=== PATIENT | female | born 1955 | race Caucasian/White ===

== ENCOUNTER 2016-10-06 06:37 | Inpatient (IN) | payer BC ==
--- NOTE | 2016-09-30 11:20 | HP ---
HISTORY AND PHYSICAL: DATE OF ADMISSION/SURGERY: 10/06/16 DATE OF OFFICE VISIT: 09/30/16 SURGEON: Ellie Dailey MD. PROCEDURE: Right total hip arthroplasty. CHIEF COMPLAINT: Right hip pain. HISTORY OF PRESENT ILLNESS: Ms. Durham is a 61-year-old female with complaints of right hip pain secondary to advanced osteoarthritis. She has failed conservative management and has elected to pro ceed with a right total hip arthroplasty, which is scheduled for 10/06/[address] Dailey. PAST MEDICAL HISTORY: Osteoarthritis. PAST SURGICAL HISTORY: Left hip arthroplasty revision, left shoulder arthroscopy, wisdom tooth extr action, and bladder sling. CURRENT MEDICATIONS: 1. Multivitamin. 2. Vitamin E. ALLERGIES: LATEX. FAMILY HISTORY: Leukemia. SOCIAL HISTORY: She is a 61-year-old female. She lives alone. She does not smoke or use drugs. S he uses alcohol occasionally. REVIEW OF SYSTEMS: A complete 14-point review of systems was reviewed with the patient and was all negative or noncontributory. PHYSICAL EXAMINATION GENERAL: She is well developed, well nourished, in no acute distress. VITAL SIGNS: She stands 5 feet tall, weighs 145 pounds. Her blood pressure is 121/76, her heart ra te is 73. HEENT: Normocephalic, atraumatic. NECK: Supple. No palpable lymph nodes. PULMONARY: Lungs are clear to auscultation bilaterally. CARDIO: Regular rate and rhythm. ABDOMEN: Soft, nontender, and nondistended. MUSCULOSKELETAL: Right lower extremity: The skin is intact. There are no open wounds or abrasions . She has diminished range of motion of her right hip. She walks with antalgic-type gait. Her low er extremity muscle group strengths are intact at 5/5. She has 2+ dorsalis pedis pulses with intact sensation. NEUROLOGIC: She is alert and oriented x3. Cranial nerves II through XII are intact. ASSESSMENT AND PLAN: Ms. Durham is a 61-year-old female with complaints of right hip pain second lavonne to advanced osteoarthritis. She failed conservative management and has elected to proceed with a right total hip arthroplasty with surgery scheduled for 10/06/[address] Dailey discus sed the risks and benefits of the surgery at today's visit and all of her questions were answered. Coumadin was sent to her pharmacy for postoperative DVT prophylaxis. She has prescription for oxyco done and Colace for pain control after the surgery. She will see Dr. Dailey back 2 weeks after the s urgery. LESVIA CENTENO [id number]/[facility] #: [id number]
[~2016-10-06 06:37] MED LIST: Buffered Lidocaine 0.9% SYRIN* 5 ML/SYR SYRINGE INTRADERM ONE; Dexamethasone IV* 4 MG/ML 1 ML (4 MG) IV SLOW PU ONE; Famotidine IV* 10 MG/ML 2 ML (20 mg) IV ONE; Scopolamine 1.5 mg* PATCH TRANSDERM ONE
[2016-10-06] MEDS ORDERED: Buffered Lidocaine 0.9% SYRIN* 5 ML/SYR SYRINGE ONE (06:51)
[2016-10-06] MEDS ORDERED: Famotidine IV* 10 MG/ML 2 ML (20 mg) ONE (07:11)
[2016-10-06] MEDS ORDERED: Scopolamine 1.5 mg* PATCH ONE (07:11)
[2016-10-06] MEDS ORDERED: Dexamethasone IV* 4 MG/ML 1 ML (4 MG) ONE (07:11)
[2016-10-06] MEDS ORDERED: ceFAZolin 2 GM PREMIX(*) 2 GM/50 ML BAG IVPB ONE (07:15)
[2016-10-06] MEDS ORDERED: fentaNYL* 50 MCG/ML 2 ML VIAL (100 MCG VIAL) ONE (07:53)
[2016-10-06] MEDS ORDERED: Midazolam* 1 MG/ML 5 ML VIAL (5 MG) ONE (07:53)
[2016-10-06] MEDS ORDERED: Morphine PF AMP (0.5MG/ML)* 5 MG/10 ML AMP ONE (07:53)
[2016-10-06] MEDS ORDERED: Bupivacaine 0.5% SDV PF* 30 ML VIAL ONE (07:53)
[2016-10-06] MEDS ORDERED: Propofol* 10 MG/ML 20 ML BTL IV PUSH ONE ×2 (08:29→09:46)
[2016-10-06] MEDS ORDERED: Lidocaine 2% PF * 5 ML VIAL ONE (08:29)
[2016-10-06] MEDS ORDERED: Phenylephrine IV* 40 MCG/ML 10 ML SYRINGE ONE (09:28)
[2016-10-06] MEDS ORDERED: Phenylephrine INJ* 10 MG/ML 1 ML VIAL (10 MG) ONE (09:38)
[2016-10-06] MEDS ORDERED: EPHEDrine (Pressors)* 50 MG/ML VIAL ONE (09:42)
[2016-10-06] MEDS ORDERED: oxyCODONE TAB* 5 MG TAB PO PRN ×2 (10:16→10:18)
[2016-10-06] MEDS ORDERED: PROCHLORPERAZINE INJ 5 MG/ML 2 ML VIAL IV PRN (10:16)
[2016-10-06] MEDS ORDERED: Nalbuphine* 20 MG/ML 1 ML VIAL IV PRN ×2 (10:16→10:18)
[2016-10-06] MEDS ORDERED: Acetaminophen IV 1GM/100ML * 100 ML IVPB ONE (10:16)
[2016-10-06] MEDS ORDERED: fentaNYL* 50 MCG/ML 2 ML VIAL (100 MCG VIAL) IV PRN (10:16)
[2016-10-06] MEDS ORDERED: Naloxone* 0.4 MG/ML 1 ML VIAL IV PRN (10:18)
[2016-10-06] MEDS ORDERED: Ondansetron INJ* 2 MG/ML VIAL IV PRN ×2 (10:18→11:36)
[2016-10-06] MEDS ORDERED: Ondansetron INJ* 2 MG/ML VIAL ONE (10:31)
[2016-10-06] MEDS ORDERED: Acetaminophen TAB* 325 MG PO SCH (11:00)
[2016-10-06] MEDS ORDERED: Midazolam* 1 MG/ML 2 ML VIAL (2 MG) ONE (11:00)
--- NOTE | 2016-10-06 11:07 | RAD ---
INDICATION: Status post right total hip arthroplasty TECHNIQUE: An AP view of the pelvis was obtained. FINDINGS: The left hip prosthesis appears to be anatomically aligned. The acetabular component of the right hip prosthesis as well as the femoral shaft component are currently in position. It did not appear that the right femoral head prostheses has been implanted yet. IMPRESSION: Intraoperative findings as described above.
[2016-10-06] MEDS ORDERED: oxyCODONE/Acetamin 5/325 MG* TAB PO PRN (11:31)
[2016-10-06] MEDS ORDERED: Ondansetron TAB* 4 MG PO PRN (11:36)
[2016-10-06] MEDS ORDERED: diPHENhydraMINE IV* 50 MG/ML 1 ml VIAL (BENADRYL) IV PRN (11:36)
[2016-10-06] MEDS ORDERED: Polyethylene Glycol 3350* 17 GM PACKET PO PRN (11:36)
[2016-10-06] MEDS ORDERED: diPHENhydraMINE PO* 25 MG PO PRN (11:36)
[2016-10-06] MEDS ORDERED: Bisacodyl SUPP* 10 MG SUPP PR PRN (11:36)
[2016-10-06] MEDS ORDERED: Morphine INJ* 10 MG/ML 1 ML SYRINGE IV PRN (11:36)
[2016-10-06] MEDS ORDERED: Acetaminophen IV 1GM/100ML * 100 ML ONE (12:04)
--- NOTE | 2016-10-06 14:04 | RAD ---
Indication: Post RIGHT total hip replacement. Comparison: August 26, 2016 Technique: AP pelvis and proximal femurs and AP and crosstable lateral views RIGHT hip. Report: Newly placed noncemented RIGHT total hip prosthesis in place with cerclage wires at the intratrochanteric and subtrochanteric regions. Normal articular alignment. No evidence for periprosthetic fracture. Surrounding soft tissue edema and subcutaneous emphysema. Unremarkable appearance of the LEFT total hip prosthesis on the AP pelvis view. IMPRESSION: Unremarkable immediate postop appearance of the RIGHT total hip prosthesis.
[2016-10-06] MEDS: ceFAZolin VIAL(*) 1 GM in NS 0.9% 50 ML* 50 ML IVPB SCH (16:35)
[2016-10-06] MEDS ORDERED: Warfarin TAB(*) 6 MG PO ONE (17:00)
[2016-10-06] MEDS: Acetaminophen TAB* 325 MG PO SCH (20:21)
[2016-10-06] MEDS: Magnesium Hydroxide LIQ* 30 ML UDC PO SCH (20:21)
[2016-10-06] MEDS: Docusate CAP* 100 MG PO SCH (20:21)
[2016-10-07] MEDS: ceFAZolin VIAL(*) 1 GM in NS 0.9% 50 ML* 50 ML IVPB SCH ×2 (00:34→07:46)
[2016-10-07] MEDS: Acetaminophen TAB* 325 MG PO SCH ×3 (03:55→20:21)
[2016-10-07 06:32] LABS: Hematocrit 27 % (35-47); Hemoglobin 8.8 g/dl (12.0-16.0); Mean Platelet Volume 9 um3 (7.4-10.4)
[2016-10-07 06:47] LABS: BUN/Creatinine Ratio 17.2 (8-20); Calcium 8.2 mg/dL (8.6-10.3); EGFR African American 136.8 (>60); EGFR Non-African American 106.4 (>60); Potassium 4.3 mmol/L (3.5-5.0)
[2016-10-07] MEDS: oxyCODONE TAB* 5 MG TAB PO PRN ×4 (07:46→20:20)
[2016-10-07] MEDS: Ascorbic Acid TAB* 500 MG PO SCH (07:46)
[2016-10-07] MEDS: Prenatal Vitamin TAB PO SCH (07:46)
[2016-10-07] MEDS: Docusate CAP* 100 MG PO SCH ×2 (07:46→20:20)
[2016-10-07] MEDS: Magnesium Hydroxide LIQ* 30 ML UDC PO SCH ×2 (09:58→20:20)
--- NOTE | 2016-10-07 11:35 | PN ---
Progress Note - Progress Note Date of Service: 10/07/16 SOAP: Subjective: 61 y/o female s/p R SOCRATES 10/[address] Dailey. 50% WB d/t intraop fx. Patient reports feeling well, pain controlled with pain medications at rest, vss afebrile overnight, no questions w regards to surgery Objective: General- Well appearing, NAD AO resting comfrotably MSK- SUrgical dressing intact, no drainage noted. neg homans b/l, + DF/PF, light touch sensation intact Vital Signs Temp 98.1 F 10/07/16 08:42 Pulse 69 10/07/16 08:42 Resp 16 10/07/16 09:46 BP 104/62 10/07/16 07:45 Pulse Ox 94 10/07/16 08:42 Intake & Output 10/06/16 10/07/16 10/07/16 18:59 06:59 18:59 Intake Total 3700 2248 420 Output Total 1950 3500 Balance 1750 -1252 420 Intake: IV Fluids 3250 1808 LR 1808 NS 50ML, Cefazolin 2G 50 lr 3200 Oral 450 440 420 Output: Jesus 1450 3500 Estimated Blood Loss 500 Other: # Bowel Movements 0 Laboratory Results - last 24 hr 10/07/16 10/07/16 10/07/16 05:47 05:47 09:13 Hgb 8.8 L Hct 27 L Plt Count 163 MPV 9 INR (Anticoag Therapy) 1.17 H Sodium 134 Potassium 4.3 Chloride 104 Carbon Dioxide 26 Anion Gap 4 BUN 10 Creatinine 0.58 Est GFR ( Amer) 136.8 Est GFR (Non-Af Amer) 106.4 BUN/Creatinine Ratio 17.2 Glucose 103 H Calcium 8.2 L Assessment: 61 y/o female s/p R SOCRATES 10/[address] Dailey. Plan: - DVT prophylaxis- coumadin, lovenox. Coumadin 6 mg tonight. - Continue PT OT - likely d/c to home over weekend Active Medications Generic Name Dose Route Start Last Admin Trade Name Freq PRN Reason Stop Dose Admin Acetaminophen 975 mg 10/06/16 20:00 10/07/16 03:55 Tylenol Tab* PO 975 mg Q8H BECKY Administration Ascorbic Acid 500 mg 10/07/16 09:00 10/07/16 07:46 Vitamin C Tab* PO 500 mg DAILY BECKY Administration Bisacodyl 10 mg 10/06/16 11:36 Dulcolax Supp* WV DAILY PRN constipation Diphenhydramine HCl 12.5 mg 10/06/16 11:36 Benadryl Iv* IV Q6H PRN PRURITIS Diphenhydramine HCl 25 mg 10/06/16 11:36 Benadryl Po* PO Q6H PRN itching Docusate Sodium 100 mg 10/06/16 21:00 10/07/16 07:46 Colace Cap* PO 100 mg BID BECKY Administration Enoxaparin Sodium 30 mg 10/07/16 12:00 Lovenox(*) SUBCUT Q24H BECKY Lactated Ringer's 1,000 mls @ 100 mls/hr 10/06/16 12:00 10/06/16 23:01 Lactated Ringers 1000 Ml Bag* IV 100 mls/hr PER RATE BECKY Administration Lactulose 30 ml 10/06/16 11:36 Lactulose* PO Q6H PRN constipation Magnesium Hydroxide 30 ml 10/06/16 21:00 10/07/16 09:58 Milk Of Magnesia Liq* PO 30 ml BID BECKY Administration Morphine Sulfate 5 mg 10/06/16 11:36 Morphine Inj (Syringe)* IV Q2H PRN PAIN Multivitamins 1 tab 10/07/16 09:00 10/07/16 07:46 Vitamin Tab* PO 1 tab DAILY BECKY Administration Ondansetron HCl 4 mg 10/06/16 11:36 Zofran Inj* IV Q6H PRN nausea Ondansetron HCl 4 mg 10/06/16 11:36 Zofran Tab* PO Q6H PRN NAUSEA Oxycodone HCl 10 mg 10/06/16 11:31 10/07/16 07:46 Roxycodone Tab* PO 10 mg Q4H PRN Administration breakthru pain Oxycodone/Acetaminophen 1 tab 10/06/16 11:31 10/07/16 03:53 Percocet 5/325 Tab* PO 1 tab Q3H PRN Administration PAIN - MODERATE Pharmacy Profile Note 1 note 10/09/16 06:00 Scopolomine Patch Remove* PATCH OFF 10/09/16 06:01 ONCE ONE Pharmacy Profile Note 1 note 10/06/16 17:00 10/06/16 16:46 Coumadin Daily Reminder* FOLLOW UP 1 note 1700 BECKY Administration Polyethylene Glycol/Electrolytes 17 gm 10/06/16 11:36 Miralax* PO DAILY PRN Constipation
[2016-10-07] MEDS ORDERED: Enoxaparin(*) 30 MG/0.3 ML SYR SUBCUT SCH (12:00)
--- NOTE | 2016-10-07 14:43 | OP ---
OPERATIVE NOTE: DATE OF OPERATION: 10/06/16 DATE OF : 59 ATTENDING SURGEON: Ellie Dailey MD. FRONT MAKER: LESVIA Chou. ANESTHESIOLOGIST: Dr. Duke. ANESTHESIA: Spinal. PRE-OP DIAGNOSIS: Severe end-stage degenerative osteoarthritis of the right hip joint secondary to developmental hip dysplasia. POST-OP DIAGNOSIS: Severe end-stage degenerative osteoarthritis of the right hip joint secondary to developmental hip dysplasia. OPERATIVE PROCEDURE: Right total hip arthroplasty. ESTIMATED BLOOD LOSS: 300 cc. SPECIMEN: Femoral head and acetabular reaming sent to pathology. COMPLICATIONS: Intraoperative proximal femoral periprosthetic fracture. HARDWARE USED: Uncemented [place] total hip hardware. For the acetabulum, a Tritanium 50D cluster hole shell, one 20-mm screw and one 16-mm screw were used. A Trident X3 10-degree polyethylene inse rt 32D for the femoral stem, an Accolade TMZF size 3 with a 132-degree neck 32 -4 Biolox delta ceram ic V40 femoral head. Two Wavii- Finestrella beaded cables were used around the proximal femur. BRIEF HISTORY/INDICATION: Ms. Durham is a 61-year-old female with greater than 10 years of increa singly severe right hip pain. She has known developmental dysplasia of the hip. She has had the le ft hip operated on in the past. The patient failed conservative treatment with antiinflammatories, pain medication and adapted physical education aide apy. Radiographs showed qmwa-hh-xuit arthritis. She elected to undergo right total hip arthroplast y due to continued pain and decreased quality of life. Informed consent was obtained from the patient. She understood the risks of surgery included, but w ere not limited to bleeding, infection, damage to nearby structures, continued pain, need for furthe r surgery, hardware failure or loosening, intraoperative fracture, nerve palsy, dislocation, leg marie gth discrepancy, stroke, heart attack, blood clot, and . The patient wished to proceed. INTRAOPERATIVE FINDINGS: Intraoperatively, the patient was noted to have severely dysplastic hip nathan int with a shallow acetabulum. Her proximal femur had dysplastic anatomy as well with an anteverted femoral neck body junction and a valgus neck. She had complete degeneration of the cartilage along the acetabulum and femoral neck and femoral hea d. DESCRIPTION OF PROCEDURE: Ms. Durham was identified in the preanesthesia unit. Her right lower ex tremity was marked as the correct operative site. Informed consent was signed and placed in the [facility] rt. The patient was taken to the operating room and placed under spinal anesthesia. A Jesus cathet er was placed. She was placed in the left lateral decubitus position on the peg board. All bony pr ominences were well padded. Right lower extremity was prepped and draped in the usual sterile fashi on. Preop time-out was made to correctly identify the patient's side and site. Appropriate periope rative antibiotics were given within 1 hour of incision. A 12-cm posterior hip incision was made with a 10-blade. This was carried down to the lateral fasci al layer. Lateral fascial layer was incised in line with the skin incision. Charnley retractor was placed. The piriformis and conjoint tendons were identified and elevated off the posterolateral fe mur using electrocautery. These were tagged with two #5 Ethibonds. Next, a posterolateral capsular flap was made with electrocautery. This was tagged with two #5 Ethibonds. The hip was carefully dislocated. It was noted that the acetabulum and femoral head had complete lo ss of cartilage. Lesser troch to center of the femoral head measured 48 mm. An oscillating saw was used to make the appropriate femoral neck cut. The femur was retraced anteriorly. After appropria te placement of retractors, the acetabulum was easily visualized. This was a shallow dysplastic robert tabular cup. Very minimal posterior wall. Long-handle knife was used to remove any remaining labru m from the acetabular rim. The acetabulum was sequentially reamed to a size 49. A good bleeding wilber ne bed was obtained. A 49 trial had a satisfactory fit. A Tritanium hemispherical cluster hole she ll 50D was chosen as the final cup. This was impacted into the acetabulum without difficulty. Appro priate anteversion and abduction angle were obtained. One 20 mm and one 16-mm screw were placed in the superior posterior quadrant for added stability. A Trident X3 10-degree polyethylene insert 32D was chosen as the liner. This was impacted into the acetabular cup without difficulty. Stability of the liner was checked and rechecked and noted to be stable. Attention was next turned to preparation of the femur. The proximal femur was noted to have a very small neck. A canal finder was used to enter the proximal femur. The proximal femur was sequential ly broached up to a size 2. A 132 neck trial with a 32 +0 head trial had lesser troch to the center of the femoral head measurement of 54 mm. Therefore, a 32 -4 head was chosen and measurement was m ore appropriate at 48 mm. The hip was reduced and taken through a range of motion. The hip was stab le in all positions. The patient's hip was carefully dislocated. All implants were carefully removed. At this time, a 1- cm proximal femoral fracture line was noted along the proximal femoral neck posteriorly. This did n ot propagate any further; however, a decision was made to place 2 cables for extra stability and to prevent any propagation while the implant was impacted. Two beaded Wavii-Finestrella cables size 2.0 were placed around the proximal femur. Next, an Accolade TMZF size 2 with a 132-degree neck was chosen as the final implant. This was impa cted into the femoral canal without difficulty. Good stability of the stem was obtained. A Biolox delta ceramic V40 femoral head 32 -4 was chosen as the final head. This was impacted onto the femor al neck without difficulty. The hip was reduced and taken through range of motion. The hip was sta ble in all positions. There was good soft tissue tension and appropriate leg lengths. The hip was copiously irrigated with sterile saline. Previously tagged capsule and tendons were reapproximated to the posterolateral femur through 2 troc hanteric drill holes. The lateral fascial layer was closed using interrupted #1 Vicryl. The rest o f the incision was closed in a layered fashion using 0 and 2-0 Vicryl. The skin was closed using ru nning 3-0 Monocryl and Dermabond. Sterile Adaptic, 4x4s, and paper tape were placed over the incisi on. The patient's anesthesia was reversed without difficulty. She was taken to the PACU in stable c ondition. Intended weightbearing will be 50% weightbearing. Intended DVT prophylaxis will be Coumad in with a Lovenox bridge. [id number]/[facility] #: [id number]
[2016-10-07] MEDS ORDERED: Lactated Ringers 500 ml BAG* 500 ML IV ONE (17:00)
[2016-10-07] MEDS ORDERED: Warfarin TAB(*) 6 MG PO SCH (17:00)
[2016-10-08] MEDS: oxyCODONE TAB* 5 MG TAB PO PRN ×4 (00:28→12:39)
[2016-10-08] MEDS: Acetaminophen TAB* 325 MG PO SCH ×2 (04:38→14:51)
[2016-10-08 07:58] LABS: Hematocrit 27 % (35-47); Hemoglobin 8.8 g/dl (12.0-16.0)
[2016-10-08] MEDS: Docusate CAP* 100 MG PO SCH (08:19)
[2016-10-08] MEDS: Ascorbic Acid TAB* 500 MG PO SCH (08:19)
[2016-10-08] MEDS: Prenatal Vitamin TAB PO SCH (08:19)
[2016-10-08] MEDS: Magnesium Hydroxide LIQ* 30 ML UDC PO SCH (08:20)
--- NOTE | 2016-10-08 08:23 | PN ---
Progress Note - Progress Note Date of Service: 10/08/16 SOAP: Subjective: Pt. is alert, pain is controlled. +bm, +urination Objective: RLE - dressing changed, inc c/d/i. distally nvi. Vital Signs: Temp Pulse Resp BP Pulse Ox 98.3 F 81 16 92/54 93 10/08/16 07:38 10/08/16 07:38 10/08/16 08:19 10/08/16 07:38 10/08/16 07:38 Laboratory Results - last 24 hr 10/07/16 10/08/16 10/08/16 09:13 07:36 07:36 Hgb 8.8 L Hct 27 L INR (Anticoag Therapy) 1.17 H 2.44 H Assessment: 61 yo F pod 2 s/p RTHA Plan: pt/ot 50 % wb rle d/c lovenox hold coumadin tonight and monday - recheck on monday inr home today with vns
[2016-10-08 12:11] VITALS: BP 124/58
--- NOTE | 2016-10-09 01:57 | DS ---
DISCHARGE SUMMARY: DATE OF ADMISSION: 10/06/16. DATE OF DISCHARGE: 10/08/16. PROVIDER: Dr. Ellie Dailey. ADMITTING DIAGNOSIS: Right total hip arthroplasty. CONSULTATIONS: Physical Therapy/Occupational Therapy. HISTORY OF PRESENT ILLNESS: Ms. Durham is an 61-year-old female with complaints of right hip pain secondary to advanced osteoarthritis. She had failed conservative management and had elected to proceed with a right total hip arthroplasty, which was performed on 10/06/[address] Ellie Dailey. HOSPITAL COURSE: The patient was admitted to [facility] on 10/06/16 and underwent a right total hip arthroplasty with no complications. The patient recovered briefly in the postanesthesia care unit and was then transferred to the short-stay surgical unit in stable condition. On postop day #1, the patient's H and H was 8.8 and 27, INR was 1.17 after 6 mg of Coumadin the night before. Dressing was clean, dry, and intact. Right lower extremity was neurovascularly intact. She could demonstrate dorsiflexion and plantarflexion with good strength. The patient was able to get out of bed with physical therapy. Pain was well controlled with oral oxycodone/acetaminophen 5/ 325. On postop day #2, the urinary catheter was discontinued, and the patient was able to void without difficulty. The incision was found to be benign with minimal drainage. No erythema or warmth. The patient's H and H was 8.8 and 27, INR was 2.44 after 6 mg of Coumadin the night before. Pain was well controlled with oxycodone 10 mg orally. The patient was able to ambulate with use of a rolling walker for assistance. The patient's pain was well controlled and found to stable for discharge. Throughout the hospital course, the vital signs remained stable and the patient was afebrile. DISCHARGE CONDITION: Good. DISCHARGE MEDICATIONS: 1. Percocet 5/325. 2. Warfarin tablets 2 mg. 3. Colace. HOME MEDICATIONS: 1. Multivitamin. 2. Vitamin E. DISCHARGE INSTRUCTIONS: The patient will be 50% weight bearing. Wound care: Okay to shower, no bathing/swimming/submerging wound. Use gentle soap, pat dry. Cover with gauze, MANUELA wrap or tape. Call orthopedic office for increased drainage, redness, increased pain, or fever. Go to ER with shortness of breath or chest pain. Diet: Regular diet. Increase fluids and fiber to prevent constipation. Continue to use stool softeners, call office if now bowel movements within 48 hours. Continue hip precautions. Do not cross legs or bend greater than 90 degrees/ squat. Continue physical therapy and occupational therapy exercises as shown. Visiting home nurse to do wound checks. Visiting home nurse to draw blood work for INR on Mondays and . Coumadin dosing, hold, Monday 10/09 hold. Percocet 5/325 take 1 or 2 tablets every 4 to 6 hours as needed for pain. Antibiotics required prior to any dental work. FOLLOWUP: Follow up with Dr. Dailey within 10 to 14 days, call for appointment. LESVIA CANDELARIA [id number]/[facility] #: [id number] [place]
[2016-10-09] MEDS ORDERED: Scopolomine PATCH Remove* 1 NOTE MISC PATCH OFF ONE (06:00)
== END 2016-10-08 16:05 | disposition home health service (06) | DRG 301 ==
LOC: AA 06:37 → SSU 11:31
PROVIDERS: ADMIT Orthopaedic Surgery Adult Reconstructive Orthopaedic Surgery; ATTEND Orthopaedic Surgery Adult Reconstructive Orthopaedic Surgery
PROC: 0SR904A Replacement of Right Hip Joint with Ceramic on Polyethylene Synthetic Substitute, Uncemented, Open Approach (ICD-10-PCS; principal; 2016-10-06 08:00)
DX: M16.11 Unilateral primary osteoarthritis, right hip (principal); Z96.642 Presence of left artificial hip joint; Q65.89 Other specified congenital deformities of hip; M97.01XA Periprosthetic fracture around internal prosthetic right hip joint, initial encounter; M96.661 Fracture of femur following insertion of orthopedic implant, joint prosthesis, or bone plate, right leg; Y79.2 Prosthetic and other implants, materials and accessory orthopedic devices associated with adverse incidents; Y65.8 Other specified misadventures during surgical and medical care; Y92.234 Operating room of hospital as the place of occurrence of the external cause; Z80.6 Family history of leukemia; Z91.040 Latex allergy status; Z72.89 Other problems related to lifestyle
CPT/HCPCS: 36415; 80048; 85014; 85018; 85049; 85610; 88304; 88311; 94760; A9270-GY; C1713; C1776; J0690; J1100; J1650; J2250; J2405; J2704; J3010

== ENCOUNTER 2018-07-08 08:52 | Emergency (ER) | payer BC, OTHER ==
[2018-07-08 08:59] VITALS: BP 155/98
--- NOTE | 2018-07-08 09:13 | UC ---
Respiratory Complaint HPI - HPI Summary HPI Summary: awoke today with PND and swollen glands, denies ST but has ear pressure. yesterday felt well until last night when had to clear her throat freq coughing only to clear throat has tried no treatment - History of Current Complaint Chief Complaint: UCRespiratory Stated Complaint: THROAT COMPLAINT Time Seen by Provider: 07/08/18 09:02 Hx Obtained From: Patient ?: No Onset/Duration: Gradual Onset - over 12 h Timing: Constant Severity Initially: Mild Severity Currently: Mild Pain Intensity: 0 Aggravating Factors: Nothing Associated Signs And Symptoms: Negative: Fever, Chills, Hemoptysis, Nasal Congestion, Sinus Discomfort - Allergies/Home Medications Allergies/Adverse Reactions: Allergies Allergy/AdvReac Type Severity Reaction Status Date / Time Adhesive Tape Allergy Blisters Verified 07/08/18 09:00 latex Allergy Blisters Verified 07/08/18 09:00 oxycodone Allergy Headache Verified 07/08/18 09:00 Home Medications: Home Medications Ibuprofen 400 mg PO 07/08/18 [History] PMH/Surg Hx/FS Hx/Imm Hx Previously Healthy: Yes - Surgical History Surgical History: Yes Surgery Procedure, Year, and Place: 3 hip replacements, shoulder replacement, wisdom teeth extraction - Family History Known Family History: Positive: None Negative: Cardiac Disease, Hypertension - Social History Occupation: Employed Full-time Lives: Alone Alcohol Use: Occasionally Substance Use Type: None Smoking Status (MU): Never Smoked Tobacco - Immunization History Most Recent Influenza Vaccination: HAS NOT HAD Most Recent Pneumonia Vaccination: HAS NOT HAD Review of Systems All Other Systems Reviewed And Are Negative: Yes Constitutional: Negative: Fever, Chills, Fatigue Skin: Positive: Negative. Negative: Rash ENT: Positive: Ear Ache. Negative: Sore Throat, Nasal Discharge, Sinus Congestion Respiratory: Positive: Negative Cardiovascular: Positive: Negative Gastrointestinal: Positive: Negative Neurological: Positive: Negative. Negative: Headache Psychological: Positive: Negative Is Patient Immunocompromised?: No Physical Exam Triage Information Reviewed: Yes Appearance: Well-Appearing, No Pain Distress, Well-Nourished Vital Signs: Initial Vital Signs Temp 97.7 F 07/08/18 08:57 Pulse 68 07/08/18 08:57 Resp 18 07/08/18 08:57 BP 155/98 07/08/18 08:57 Pulse Ox 100 07/08/18 08:57 Vital Signs Reviewed: Yes Eyes: Positive: Conjunctiva Clear ENT: Positive: Nasal congestion, TMs normal, Other - thick white PND. Negative : Nasal drainage, Hoarse voice Neck: Positive: Enlarged Nodes @ - bilateral anterior cervical Respiratory Exam: Normal Respiratory: Positive: Lungs clear Cardiovascular Exam: Normal Cardiovascular: Positive: RRR Neurological Exam: Normal Psychological Exam: Normal Skin Exam: Normal Skin: Negative: Rashes Respiratory Course/Dx - Differential Dx/Diagnosis Differential Diagnosis/HQI/PQRI: Bronchitis, Influenza, Lower Resp Infection, Sinusitis Provider Diagnosis: URI (upper respiratory infection) Discharge - Sign-Out/Discharge Documenting (check all that apply): Patient Departure All imaging exams completed and their final reports reviewed: No Studies - Discharge Plan Condition: Good Disposition: HOME Prescriptions: Amoxicillin PO (*) [Amoxicillin 875 MG (*)] 875 mg PO BID #20 tab Patient Education Materials: Upper Respiratory Infection (ED) Referrals: No Primary Care Phys,NOPCP [Primary Care Provider] - Patient Referred ELICIA Bedolla [, APPLICATION, OTHER] - Additional Instructions: drink plenty of fluids start antibiotic if n better 2 days or if subramanian develop a fever return here or to the ER if your symptoms worsen at any time ibuprofen 600mg every 6 hours as needed for pain - Billing Disposition and Condition Condition: GOOD Disposition: Home
== END 2018-07-08 09:22 | disposition home or self-care (01) ==
LOC: UCEAST 08:52
DX: J06.9 Acute upper respiratory infection, unspecified (principal); Z91.09 Other allergy status, other than to drugs and biological substances; Z88.5 Allergy status to narcotic agent; Z91.040 Latex allergy status
CPT/HCPCS: 99212; G0463